=== PATIENT | male | born 1995 | race Hispanic/Latino ===

== ENCOUNTER 2024-03-03 06:02 | Observation (INO) | payer BC, OTHER ==
[2024-02-28 14:21] VITALS: BMI 31.1
[2024-03-03] MEDS ORDERED: Ondansetron PF 4 MG/2 ML Vial IVP PRN (07:23)
[2024-03-03] MEDS ORDERED: Ondansetron ODT 4 MG TAB PO PRN (07:23)
[2024-03-03] MEDS ORDERED: HYDROcodone/Acetaminophen 10/325 mg Tablet PO PRN (07:26)
[2024-03-03] MEDS ORDERED: Tranexamic Acid 1,000 MG/10 ML VIAL ONE (08:15)
[2024-03-03] MEDS ORDERED: Rocuronium Bromide 10 MG/ML (10ML VIAL) ONE (08:20)
[2024-03-03] MEDS ORDERED: Lidocaine 1% PF 5 ML VIAL ONE (08:20)
[2024-03-03] MEDS ORDERED: SUGAMMADEX SODIUM 200 MG/2 ML VIAL ONE (08:20)
[2024-03-03] MEDS ORDERED: Ondansetron PF 4 MG/2 ML Vial ONE (08:20)
[2024-03-03] MEDS ORDERED: Dexamethasone 20 MG/5 ML VIAL ONE (08:20)
[2024-03-03] MEDS ORDERED: PROPOFOL 40 ML ONE (08:21)
[2024-03-03] MEDS ORDERED: PROPOFOL 20 ML ONE (08:21)
[2024-03-03] MEDS ORDERED: Fentanyl 250 MCG/5 ML VIAL ONE (08:21)
[2024-03-03] MEDS ORDERED: EPINEPHrine 1 MG/ML VIAL ONE ×3 (08:23→14:04)
[2024-03-03] MEDS ORDERED: Lidocaine 1% (PF) 30 ML VIAL ONE (08:24)
[2024-03-03] MEDS ORDERED: Mupirocin 2% Ointment 22 GM Tube ONE (08:24)
[2024-03-03] MEDS ORDERED: AFRIN NASAL MIST 15 ML BOT ONE (08:24)
[2024-03-03] MEDS ORDERED: CEFAZOLIN 2 GM VIAL ONE ×2 (08:48→12:32)
[2024-03-03] MEDS ORDERED: Oxymetazoline HCl 0.05% ( 15 ML ) ONE (09:06)
[2024-03-03] MEDS ORDERED: HYDROmorphone 0.5 MG/0.5 ML SYRINGE ONE (12:42)
[2024-03-03] MEDS ORDERED: fentaNYL 50 mcg/mL 1 mL Vial ONE (13:52)
[2024-03-03] MEDS: Acetaminophen 325 MG TAB PO SCH (15:16)
[2024-03-03] MEDS: Lactated Ringer's 1,000 ML IV SCH (15:41)
[2024-03-03] MEDS: Hydrocodone-Acetamin 15 ML UDCUP PO PRN (16:30)
[2024-03-03] MEDS: Ibuprofen 200 MG TAB PO SCH (17:55)
[2024-03-03] MEDS: Morphine 4 MG/ML VIAL SLOW IVP PRN (19:02)
[2024-03-03] MEDS: Amoxicillin/Potassium Clav 875 MG TAB PO SCH (21:40)
[2024-03-04 04:45] VITALS: TEMP 98.8
[2024-03-04 10:02] VITALS: BP 112/75
== END 2024-03-04 11:40 | disposition home or self-care (01) ==
LOC: CSHSDC 06:02 → CSHTELE 14:40
PROVIDERS: ADMIT Otolaryngology; ATTEND Otolaryngology
PROC: 0CTPXZZ Resection of Tonsils, External Approach (ICD-10-PCS; principal; 2024-03-03)
PROC: 09SM4ZZ Reposition Nasal Septum, Percutaneous Endoscopic Approach (ICD-10-PCS; 2024-03-03)
PROC: 095L8ZZ Destruction of Nasal Turbinate, Via Natural or Artificial Opening Endoscopic (ICD-10-PCS; 2024-03-03)
PROC: 0KS Muscles, Reposition (ICD-10-PCS; 2024-03-03)
DX: G47.33 Obstructive sleep apnea (adult) (pediatric) (principal); J34.2 Deviated nasal septum; J34.3 Hypertrophy of nasal turbinates; J35.1 Hypertrophy of tonsils
CPT/HCPCS: 88304; J0171; J1100; J1171; J2270; J2405; J2704; J3010; J7120